=== PATIENT | female | born 1980 | race Two or more races ===

== ENCOUNTER 2024-06-30 13:41 | Inpatient (IN) | payer OTHER ==
[~2024-06-30] VITALS: Ht 160 cm; Wt 106.6 kg
[2024-06-30] MEDS ORDERED: 0.9 % SODIUM CHLORIDE 1,000 ML IV STA (15:31)
[2024-06-30] MEDS ORDERED: KETOROLAC TROMETHAMINE 60 MG VIAL IM STA (15:33)
[2024-06-30 16:17] LABS: HEMATOCRIT 33.5 % (36.0-45.00); HEMOGLOBIN 11.3 g/dL (12.0-15.00); MEAN CELL VOLUME 79.3 fL (80.00-100.00); MEAN CORPUSCULAR HEMOGLOBIN 26.6 pg (27.00-32.0); MEAN CORPUSCULAR HGB CONC 33.6 g/dl (32.0-36.0); PLATELET COUNT 195 K/uL (150-450); RED BLOOD COUNT 4.23 M/uL (4.00-6.00); RED CELL DISTRIBUTION WIDTH 16.6 % (11.5-14.5)
[2024-06-30 16:39] LABS: ALBUMIN 2.7 gm/dL (3.4-5.0); BILIRUBIN TOTAL 0.47 mg/dL (0.3-1.2); BILIRUBIN,CONJUGATED 0.14 mg/dL (0.0-0.2); BILIRUBIN,UNCONJUGATED 0.33 mg/dL (0.0-0.6); CALCIUM 8.2 mg/dL (8.5-10.1); CREATININE SERUM 0.75 mg/dL (0.55-1.02); GFR 83.56; POTASSIUM 3.31 mEq/L (3.5-5.1); TOTAL PROTEIN 7.4 gm/dL (6.4-8.2)
[2024-06-30 18:08] LABS: ABG PH 7.483 (7.35-7.45); ABG pCO2 35.8 mmHg (35-45); BASE EXCESS 3.1 mmol/l; BICARBONATE 26.3 mmol/l (23-25); SaO2 91.6 %; Tco2 27.4 mmol/l
[2024-06-30 18:23] LABS: ABG PO2 56.7 mmHg (80-100); allen test SATISFACTORY; o2 21 %; puncture site RADIAL RIGHT
[2024-06-30 18:27] LABS: PH,URINE 6.5 (5.0-8.0); URINE APPEARANCE Clear; URINE BILIRRUBIN Negative (NEGATIVE); URINE BLOOD Negative; URINE COLOR Yellow; URINE GLUCOSE Negative (NEGATIVE); URINE KETONE Trace (NEGATIVE); URINE LEUKOCYTE Negative; URINE NITRATE Negative
[2024-06-30 18:28] LABS: URINE BACTERIA 3437.1 uL (0.0-1933); URINE EPITHELIAL CELLS 30.4 uL (0.0-38.8); URINE PROTEIN 100 (NEGATIVE); URINE RBC 7.6 uL (0.0-20.8); URINE WBC 7.1 uL (0.0-23.2)
[2024-06-30] MEDS ORDERED: levoFLOXacin IN DEXTROSE 5 % 5 MG/ML PIGGYBAG IV STA (19:38)
[2024-06-30] MEDS ORDERED: METHYLPREDNISOLONE SOD SUCC 125 MG VIAL IV STA (19:38)
[2024-06-30] MEDS ORDERED: ALBUTEROL SULFATE 3 ML/2.5 MG AMPUL.NEB IH SCH (21:10)
[2024-06-30] MEDS ORDERED: IPRATROPIUM BROMIDE 0.5 MG/2.5 ML AMPUL.NEB IH SCH (21:10)
[2024-06-30] MEDS ORDERED: ACETAMINOPHEN 500 MG GEL..CAP PO PRN (21:15)
[2024-06-30] MEDS ORDERED: 0.9 % SODIUM CHLORIDE 1,000 ML IV SCH (21:15)
[2024-06-30] MEDS ORDERED: ONDANSETRON HCL 4 MG in DEXTROSE 5 % IN WATER 50 ML IV PRN (21:15)
[2024-06-30] MEDS ORDERED: MEPERIDINE HCL/PF 25 MG/ML VIAL IM PRN (21:15)
[2024-06-30] MEDS ORDERED: ENOXAPARIN SODIUM 100 MG/ML SYRINGE SUBCUTANEO SCH (21:32)
[2024-06-30] MEDS ORDERED: hydrALAZINE HCL 20 MG VIAL IV PRN (21:45)
[2024-06-30] MEDS ORDERED: POTASSIUM BICARBONATE/CIT AC 25 MEQ TABLET.EFF PO ONE (22:00)
[2024-06-30 22:19] VITALS: BP 145/85; O2SAT 99
[2024-07-01] VITALS (8 sets, daily range): BP systolic 121–155; BP diastolic 78–92; O2SAT 90–98
[2024-07-01] MEDS ORDERED: PIPERACILLIN/TAZOBACTAM SODIUM 3.375 GM in 0.9 % SODIUM CHLORIDE 100 ML IV SCH
[2024-07-01] MEDS ORDERED: METHYLPREDNISOLONE SOD SUCC 40 MG VIAL IV SCH ×2 (01:00)
[2024-07-01 06:43] LABS: ABG PH 7.444 (7.35-7.45); ABG PO2 120.3 mmHg (80-100); ABG pCO2 39.2 mmHg (35-45); BASE EXCESS 2.2 mmol/l
[2024-07-01 06:44] LABS: BICARBONATE 26.3 mmol/l (23-25); Tco2 27.5 mmol/l; allen test SATISFACTORY; o2 50 %; puncture site RADIAL LEFT
[2024-07-01 06:54] LABS: SaO2 98.8 %
[2024-07-01 07:47] LABS: ALBUMIN 2.7 gm/dL (3.4-5.0); BILIRUBIN TOTAL 0.37 mg/dL (0.3-1.2); BILIRUBIN,CONJUGATED 0.12 mg/dL (0.0-0.2); BILIRUBIN,UNCONJUGATED 0.25 mg/dL (0.0-0.6); CALCIUM 8.4 mg/dL (8.5-10.1); CREATININE SERUM 0.7 mg/dL (0.55-1.02); GFR 90.49; GLOBULINA 4.8 G/DL (2.4-3.5); POTASSIUM 3.64 mEq/L (3.5-5.1); TOTAL PROTEIN 7.5 gm/dL (6.4-8.2)
[2024-07-01 07:48] LABS: C-REACTIVE PROTEIN 2.54 MG/DL (0.00-0.29); CHOL HDL RATIO 10.5 (0-5.0)
[2024-07-01 07:48] LABS: PH,URINE 6.5 (5.0-8.0); URINE APPEARANCE Clear; URINE BILIRRUBIN Negative (NEGATIVE); URINE BLOOD Negative; URINE COLOR Yellow; URINE GLUCOSE Negative (NEGATIVE); URINE KETONE Negative (NEGATIVE); URINE LEUKOCYTE Negative; URINE NITRATE Negative; URINE PROTEIN 30 (NEGATIVE); URINE UROBILINOGEN 0.2 E.U./dl
[2024-07-01 07:52] LABS: URINE BACTERIA 1000.3 uL (0.0-1933); URINE EPITHELIAL CELLS 18.8 uL (0.0-38.8); URINE RBC 3.5 uL (0.0-20.8); URINE WBC 2.7 uL (0.0-23.2)
[2024-07-01 08:04] LABS: HEMATOCRIT 31.9 % (36.0-45.00); HEMOGLOBIN 10.6 g/dL (12.0-15.00); INR 1.22; MEAN CELL VOLUME 78.5 fL (80.00-100.00); MEAN CORPUSCULAR HGB CONC 33.1 g/dl (32.0-36.0); PLATELET COUNT 178 K/uL (150-450); PROTHROMBIN TIME 13.1 SECONDS (9.0-11.5); RED BLOOD COUNT 4.07 M/uL (4.00-6.00); RED CELL DISTRIBUTION WIDTH 16.1 % (11.5-14.5)
[2024-07-01 08:15] LABS: ERYTHROCYTE SEDIMENTATION RATE 46 mm/hr
[2024-07-01 08:17] LABS: PARTIAL THROMBOPLASTIN TIME 48.1 SECONDS (22.0-34.0)
[2024-07-01] MEDS ORDERED: BUDESONIDE 0.5 MG/2 ML AMPUL.NEB IH SCH (09:00)
[2024-07-01] MEDS ORDERED: FAMOTIDINE/PF 20 MG in 0.9 % SODIUM CHLORIDE 8 ML IV PUSH SCH (09:00)
[2024-07-01] MEDS ORDERED: CEFTRIAXONE SODIUM 1,000 MG VIAL IV NR (10:30)
[2024-07-01] MEDS ORDERED: AZITHROMYCIN 500 MG VIAL IV NR (10:30)
[2024-07-01] MEDS ORDERED: CEFTRIAXONE SODIUM 1,000 MG in DEXTROSE 5 % IN WATER 100 ML IV SCH (21:00)
[2024-07-02] VITALS (7 sets, daily range): BP systolic 132–142; BP diastolic 72–96; O2SAT 90–99
[2024-07-02] MEDS ORDERED: AZITHROMYCIN 500 MG in DEXTROSE 5 % IN WATER 250 ML IV SCH (09:00)
[2024-07-02] MEDS ORDERED: ENOXAPARIN SODIUM 40 MG/0.4 ML SYRINGE SUBCUTANEO SCH (09:00)
[2024-07-02 19:46] LABS: ABG PH 7.462 (7.35-7.45); ABG PO2 68.1 mmHg (80-100); ABG pCO2 36.4 mmHg (35-45); BASE EXCESS 1.9 mmol/l; BICARBONATE 25.4 mmol/l (23-25); SaO2 94.5 %; Tco2 26.5 mmol/l
[2024-07-02 19:47] LABS: allen test SATISFACTORY; o2 21 %; puncture site RADIAL RIGHT
[2024-07-03 01:19] VITALS: BP 150/100; O2SAT 95
[2024-07-03 02:00] VITALS: O2SAT 90
[2024-07-03 06:17] VITALS: O2SAT 89
[2024-07-03 08:05] VITALS: BP 140/90; O2SAT 96
[2024-07-03 09:45] VITALS: O2SAT 90
[2024-07-03] MEDS ORDERED: METOPROLOL SUCCINATE 25 MG TAB.SR.24H PO NR (12:00)
[2024-07-03 13:32] VITALS: O2SAT 92
[2024-07-05 09:08] LABS: ebv vca igg > 600.0 U/mL (0.0-17.9); vca igm ab > 160.0 U/mL (0.0-35.9)
== END 2024-07-03 13:48 | disposition home or self-care (01) | DRG 195 ==
LOC: ER 13:43 → MEDI 22:20
PROVIDERS: General Practice; Internal Medicine; Student in an Organized Health Care Education/Training Program; ADMIT Internal Medicine; ATTEND Internal Medicine
PROC: BW24YZZ Computerized Tomography (CT Scan) of Chest and Abdomen using Other Contrast (ICD-10-PCS; principal; 2024-06-30)
PROC: 4A12X4Z Monitoring of Cardiac Electrical Activity, External Approach (ICD-10-PCS; 2024-07-01)
PROC: B24BZZZ Ultrasonography of Heart with Aorta (ICD-10-PCS; 2024-07-02)
DX: J15.7 Pneumonia due to Mycoplasma pneumoniae (principal); R09.02 Hypoxemia; E66.01 Morbid (severe) obesity due to excess calories; D64.9 Anemia, unspecified; G47.33 Obstructive sleep apnea (adult) (pediatric); K81.9 Cholecystitis, unspecified